=== PATIENT | female | born 1990 | race Caucasian/White ===

== ENCOUNTER 2020-11-27 01:15 | Emergency (ER) | payer MEDICAID ==
[~2020-11-27] VITALS: Ht 165.1 cm; Wt 65.8 kg
[2020-11-27 01:15] VITALS: BP 140/83
--- NOTE | 2020-11-27 01:15 | NUR ---
TO BED VIA WHEELCHAIR
--- NOTE | 2020-11-27 01:25 | NUR ---
COVERING PRIMARY RN FOR LUNCH RELIEF. SEE COMPLETE ASSESSMENT.
[2020-11-27] MEDS ORDERED: MORPHINE SULFATE 4 MG/ML SYR IVP ONE ×3 (01:50→09:40)
[2020-11-27] MEDS ORDERED: ONDANSETRON 4 MG/2 ML VIAL IVP ONE (01:50)
--- NOTE | 2020-11-27 02:00 | NUR ---
30 Y/O F PRESENTS TO ED WITH C/O RT TIBIA PAIN S/P TRIPPING DURING AMBULATION DOWN A FLIGHT OF STAIRS. PT DENIES LOC OR COMPLETED FALL. +CMS. STRONG PEDAL PULSES. PT UNABLE TO EXTEND LEG DUE TO INCREASED PAIN DURING MOVEMENT. PT RT TIBIA WRAPPED IN HOMEMADE SPLINT. UNABLE TO UNDRESS, PT HAS SEVERE PAIN WHEN TOUCHED. MEDHX- NONE NKA
--- NOTE | 2020-11-27 02:15 | NUR ---
MD HODGE GAVE VERBAL ORDER FOR MORPHINE 4M IVP STAT DOSE.
--- NOTE | 2020-11-27 02:18 | NUR ---
REMOVED PTS HOMEMADE SPLINT/CAST. OBVIOUS DEFORMITY NOTED ON RT LEG.
--- NOTE | 2020-11-27 02:20 | NUR ---
XR AT BEDSIDE.
[2020-11-27] MEDS ORDERED: MORPHINE SULFATE 2 MG/ML SYR ONE (04:12)
--- NOTE | 2020-11-27 04:15 | NUR ---
SPLINT APPLIED TO RT LEG. CMS INTACT. MOTOR FUNCTION LIMITED D/T INJURY/PAIN. SKIN IS WARM AND NORMAL SKIN COLOR. PEDAL PULSES PRESENT BLE. CAP REFILL < 3.
--- NOTE | 2020-11-27 04:32 | NUR ---
COVID NELSON SWAB COLLECTED AND SENT TO LAB.
[2020-11-27 04:54] LABS: BASOPHILS % (AUTO) 0.2 % (0.0-2.0); EOSINOPHILS % (AUTO) 0.2 % (0.0-4.0); HEMATOCRIT 37.3 % (36-48); HEMOGLOBIN 12.3 g/dL (12.0-16.0); LYMPHOCYTES # (AUTO) 2.8 K/uL (2.5-16.5); LYMPHOCYTES % (AUTO) 19.1 % (20.5-51.1); MEAN CORPUSCULAR HEMOGLOBIN 31 pg (27-31); MEAN CORPUSCULAR HGB CONC 33 g/dL (33-37); MEAN CORPUSCULAR VOLUME 94.8 fL (80-94); MONOCYTES # (AUTO) 0.6 K/uL (0.8-1.0); MONOCYTES % (AUTO) 4.4 % (1.7-9.3); NEUTROPHILS # (AUTO) 11.2 K/uL (1.8-7.7); NEUTROPHILS % (AUTO) 76.1 % (42.2-75.2); PLATELET COUNT (AUTO) 283 K/uL (140-450); RED BLOOD CELL COUNT(AUTO) 3.93 MIL/uL (4.20-5.40); RED CELL DISTRIBUTION WIDTH 13.2 % (11.6-13.7); WHITE BLOOD COUNT (AUTO) 14.7 K/uL (4.8-10.8)
--- NOTE | 2020-11-27 04:55 | NUR ---
POINT OF CONTACT: ROVERTO WEISS (FATHER)- [phone]
[2020-11-27 05:03] LABS: ANION GAP 18.8 (8-16); CREATININE 0.8 mg/dL (0.6-1.3); POTASSIUM 3.8 mmol/L (3.5-5.1)
--- NOTE | 2020-11-27 05:04 | NUR ---
PLACED LONG LEG SPLINT WITH ER DOCTOR AND PRIMARY NURSE ON PT'S RIGHT LEG, WRAP WITH 4" WOLF WRAP AND PLACED EXTRIMITY IN A 30 DEGREE ANGLE WITH SLIGHT FLEXATION TO FOOT, CHECKED PMSC'S BEFORE AND AFTER LONG LEG SPLINT WAS PLACED WITHOUT INCIDENT. PROVIDED PT WITH ONE ON ONE INSTRUCTIONS ON HOW TO PROPERLY USE CRUTCHES WITHOUT INCIDENT.
--- NOTE | 2020-11-27 05:05 | NUR ---
SPOKE TO [facility]NAG[facility]. CASE MANAGEMENT WANTED AN UPDATE STATUS ON HER CONDITION. ALL QUESTIONS AND CONCERNS ANSWERED AT THIS TIME.
[2020-11-27] MEDS ORDERED: MORPHINE SULFATE 2 MG/ML SYR IVP ONE (05:15)
[2020-11-27 05:17] LABS: PROTHROMBIN TIME 9.9 secs (10.8-13.4)
--- NOTE | 2020-11-27 06:39 | NUR ---
Patient to be transferred to [facility]. Is being transferred due to INSURANCE REQUEST. Receiving facility has accepting physician and available space. ER physician has signed transfer form. Patient or responsible republican has agreed to transfer and signed form. Patient belongings inventoried and will be sent with patient. Copy of nursing notes, lab reports, EKG, Physicians Orders and X-rays to be sent with patient. Report called to VANCE PAREDES at receiving facility.
--- NOTE | 2020-11-27 06:40 | NUR ---
PER VANCE PAREDES TO CALL BACK WHEN WE HAVE A ETA AND TRANSPORTATION ARRANGEMENT.
--- NOTE | 2020-11-27 07:11 | NUR ---
Pt report given to VANCE RADER. Transfer of care at this time.
--- NOTE | 2020-11-27 07:12 | NUR ---
RECEIVED REPORT FROM JEFFREY WOODARD, TRANSFER OF CARE AT THIS TIME.
--- NOTE | 2020-11-27 07:45 | NUR ---
ASSISTED PATIENT ONTO BEDPAN. PT MADE COMFORTABLE. BED IN LOWEST POSITION, BRAKES LOCKED, X2 SIDERAILS UP FOR SAFETY. WILL CONTINUE TO MONITOR
[2020-11-27] MEDS ORDERED: NACL 0.9% 1,000 ML IV ONE (09:40)
[2020-11-27] MEDS ORDERED: DEXT 5% / NACL 0.45% 1,000 ML IV ONE (09:40)
--- NOTE | 2020-11-27 09:51 | NUR ---
RAD AT BEDSIDE
--- NOTE | 2020-11-27 09:52 | NUR ---
CALLED [facility] WITH ETA FOR FIELD REPORTER AT 1030. ETA TO [place] [id number]
--- NOTE | 2020-11-27 10:16 | NUR ---
[facility] HERE FOR TRANSPORT, DID NOT ADMINISTER DEXTROSE 5% IN 0.45% NS. DR SCHILLING MADE AWARE.
[2020-11-27 10:29] VITALS: BP 128/70
--- NOTE | 2020-11-27 10:29 | NUR ---
Patient to be transferred to [facility]. Is being transferred due to insurance reasons. Receiving facility has accepting physician and available space. ER physician has signed transfer form. Patient or responsible green party has agreed to transfer and signed form. Patient belongings inventoried and will be sent with patient. Copy of nursing notes, lab reports, EKG, Physicians Orders and X-rays to be sent with patient. Report called to Duglas at receiving facility. [facility] ambulance service has been called for transfer. ETA is 1 hr.
== END 2020-11-27 10:39 | disposition short-term general hospital (02) ==
LOC: MED 01:15
DX: S82.491A Other fracture of shaft of right fibula, initial encounter for closed fracture (principal); W18.39XA Other fall on same level, initial encounter; Y93.89 Activity, other specified; Y92.89 Other specified places as the place of occurrence of the external cause; Y99.8 Other external cause status; Z20.822 Contact with and (suspected) exposure to COVID-19
CPT/HCPCS: 29505; 36415; 73562; 73590; 73610; 80048; 84702; 85025; 85610; 85730; 86886; 86900; 86901; 87426; 96374; 96375; 96376; 99285; J2270; J2405; J7030